=== PATIENT | female | born 1975 ===

== ENCOUNTER 2018-01-13 20:31 | Emergency (ER) | payer OTHER ==
[~2018-01-13] VITALS: Ht 165.1 cm; Wt 65.8 kg
[2018-01-13] MEDS ORDERED: HYZAAR 50-12.51 EACH (20:39)
[2018-01-13] MEDS ORDERED: CELEBREX200MG (20:39)
[2018-01-13] MEDS ORDERED: SYNTHROID75 MCG (20:40)
[2018-01-13] MEDS ORDERED: FOLIC ACID1 MG (20:40)
== END 2018-01-13 23:30 | disposition home or self-care (01) ==
LOC: ER 20:31
DX: S80.01XA Contusion of right knee, initial encounter (principal); W18.39XA Other fall on same level, initial encounter; Y93.89 Activity, other specified; Y92.098 Other place in other non-institutional residence as the place of occurrence of the external cause; Y99.8 Other external cause status